=== PATIENT | female | born 1955 | race Caucasian/White ===

== ENCOUNTER 2019-04-24 06:29 | Day surgery (SDC) | payer OTHER ==
[~2019-04-24 06:29] MED LIST: DORZOLAMIDE HCL 2%/TIMOLOL MALEAT 0.5% OPH SOLN 10 ML OD PRN; KETOROLAC TROMETHAMINE 0.45% 4 DROP/0.4 ML DROPERETTE OD PRN
[2019-04-24] MEDS: BESIFLOXACIN HCL 0.6% OPH SUSP 5 ML BOTTLE OD PRN ×3 (06:50→08:04)
[2019-04-24] MEDS: CYCLOPENTOLATE 0.2%/PHENYLEPHRINE 1% OPH SOLN 2 ML OD PRN ×3 (06:50→07:12)
[2019-04-24] MEDS: TETRACAINE HCL 0.5% OPH SOLN 4 ML OD PRN ×3 (06:50→07:37)
[2019-04-24] MEDS: TROPICAMIDE 1% OPH SOLN 15 ML OD PRN ×3 (06:50→07:12)
[2019-04-24] MEDS ORDERED: EPINEPHRINE INJ/PF 1 MG/1 ML AMPULE ONE (07:12)
[2019-04-24] MEDS ORDERED: LIDOCAINE 1%/PHENYLEPHRINE 1.5% 1 ML VIAL ONE (07:12)
[2019-04-24] MEDS ORDERED: CHONDR SU A NA/HYALUR INTRAOC KIT (SURGICARE) ONE (07:12)
[2019-04-24] MEDS ORDERED: MIDAZOLAM 2 MG/2 ML INJ ONE (07:15)
[2019-04-24] MEDS ORDERED: FENTANYL CITRATE INJ/PF 100 MCG/2 ML AMPUL ONE (07:15)
--- NOTE | 2019-04-24 12:30 | Operative Report ---
Operative Report-[facility] Operative Report: DATE OF SURGERY: 04/24/2019 PREOPERATIVE DIAGNOSIS: Cataract, right eye POSTOPERATIVE DIAGNOSIS: Cataract, right eye OPERATION: Cataract extraction with insertion of an toric IOL of the right eye. Intraocular Lens Model: [11.5 [id number] at 72 degrees] reason for surgery was difficulty seeing road signs and television SURGEON: Adan Albrecht MD ANESTHESIA: Topical PROCEDURE: After obtaining appropriate consent, the patient's right eye was prepped and draped in a sterile fashion as well as the surgeon in the sterile manner and cataract surgery was started. First a paracentesis blade was used to make a side-port incision. Viscoelastic was used to inflate the anterior chamber. Next a 2.4 mm incision was made with a 2.4 mm blade, clear corneal temporarily. A continuous capsulorrhexis was made using a cystotome and Utrata forceps. Following this hydrodissection was carried out to make the fidel fully loose and mobile and it was rotated. Following this, a divide and conquer technique was used to phacoemulsify the fidel. The remaining cortex was removed with an irrigation/aspiration. Provisc was instilled into the capsular bag to inflate the bag. The intraocular lens was placed. The remaining viscoelastic material was removed with irrigation/aspiration. Following this, the incision was found to be watertight. Besivance and Cosopt was instilled into the eye and a protective shield was placed over the eye. The patient was reurned to the postoperative recovery in a stable condition.
== END 2019-04-24 08:58 | disposition home or self-care (01) ==
LOC: SC 06:29
PROVIDERS: ATTEND Internal Medicine
DX: H25.13 Age-related nuclear cataract, bilateral (principal); H43.813 Vitreous degeneration, bilateral; H52.4 Presbyopia; E66.9 Obesity, unspecified; J45.909 Unspecified asthma, uncomplicated; Z79.51 Long term (current) use of inhaled steroids
CPT/HCPCS: 66984; V2787; J2250; J3490 ×2; J0171; J3010; J2370

== ENCOUNTER 2019-05-22 09:02 | Day surgery (SDC) | payer OTHER ==
[~2019-05-22 09:02] MED LIST changes: +CHONDR SU A NA/HYALUR INTRAOC KIT (SURGICARE) ONE; -DORZOLAMIDE HCL 2%/TIMOLOL MALEAT 0.5% OPH SOLN 10 ML OD PRN; +DORZOLAMIDE HCL 2%/TIMOLOL MALEAT 0.5% OPH SOLN 10 ML OS PRN; +EPINEPHRINE INJ/PF 1 MG/1 ML AMPULE ONE; +FENTANYL CITRATE INJ/PF 100 MCG/2 ML AMPUL ONE; -KETOROLAC TROMETHAMINE 0.45% 4 DROP/0.4 ML DROPERETTE OD PRN; +KETOROLAC TROMETHAMINE 0.45% 4 DROP/0.4 ML DROPERETTE OS PRN; +LIDOCAINE 1%/PHENYLEPHRINE 1.5% 1 ML VIAL ONE; +MIDAZOLAM 2 MG/2 ML INJ ONE; +ONDANSETRON HCL INJ/PF 4 MG/2 ML SDV ONE
[2019-05-22] MEDS: BESIFLOXACIN HCL 0.6% OPH SUSP 5 ML BOTTLE OS PRN ×3 (10:17→11:19)
[2019-05-22] MEDS: TROPICAMIDE 1% OPH SOLN 15 ML OS PRN ×3 (10:17→10:32)
[2019-05-22] MEDS: TETRACAINE HCL 0.5% OPH SOLN 4 ML OS PRN ×3 (10:17→10:48)
[2019-05-22] MEDS: CYCLOPENTOLATE 0.2%/PHENYLEPHRINE 1% OPH SOLN 2 ML OS PRN ×3 (10:17→10:32)
[2019-05-22] MEDS ORDERED: TETRACAINE HCL 0.5% OPH SOLN 4 ML ONE (10:51)
[2019-05-22] MEDS ORDERED: ONDANSETRON HCL INJ/PF 4 MG/2 ML SDV ONE (11:24)
--- NOTE | 2019-05-22 16:03 | Operative Report ---
Operative Report-[facility] Operative Report: DATE OF SURGERY: 05/22/2019 PREOPERATIVE DIAGNOSIS: Cataracts, left eye POSTOPERATIVE DIAGNOSIS: Cataract, left eye OPERATION: Cataract extraction with insertion of an toric IOL of the left eye. Intraocular Lens Model: [12.5PX72T729 rotated to 110 degrees] Reason for surgery was difficulty with imbalance between both eyes since having the right eye done SURGEON: Adan Albrecht MD ANESTHESIA: Topical PROCEDURE: After obtaining appropriate consent, the patient's left eye was prepped and draped in a sterile fashion as well as the surgeon in the sterile manner and cataract surgery was started. First a paracentesis blade was used to make a side-port incision. Viscoelastic was used to inflate the anterior chamber. Next a 2.4 mm incision was made with a 2.4 mm blade, clear corneal temporarily. A continuous capsulorrhexis was made using a cystotome and Utrata forceps. Following this hydrodissection was carried out to make commands fully loose and mobile and it was rotated 90 degrees. Following this, a divide and conquer technique was used to phacoemulsify the lens. The remaining cortex was removed with an irrigation/aspiration. Provisc was instilled into the capsular bag to inflate the bag.The intracular lens was placed. The remaining viscoelastic material was removed with irrigation/aspiration. Following this, the incision was found to be watertight. Besivance and Cosopt was instilled into the eye and a protective shield was placed over the eye. The patient was turned to the postoperative recovery in a stable condition.
--- NOTE | 2019-05-22 16:05 | Operative Report ---
Operative Report-[facility] Operative Report: DATE OF SURGERY: 05/22/2019 PREOPERATIVE DIAGNOSIS: Cataracts, left eye POSTOPERATIVE DIAGNOSIS: Cataract, left eye OPERATION: Cataract extraction with insertion of an IOL of the left eye. Intraocular Lens Model: [21.3mz64oz] Reason for surgery was difficulty with blurred vision in the left eye having trouble with glare SURGEON: Adan Albrecht MD ANESTHESIA: Topical PROCEDURE: After obtaining appropriate consent, the patient's left eye was prepped and draped in a sterile fashion as well as the surgeon in the sterile manner and cataract surgery was started. First a paracentesis blade was used to make a side-port incision. Viscoelastic was used to inflate the anterior chamber. Next a 2.4 mm incision was made with a 2.4 mm blade, clear corneal temporarily. A continuous capsulorrhexis was made using a cystotome and Utrata forceps. Following this hydrodissection was carried out to make commands fully loose and mobile and it was rotated 90 degrees. Following this, a divide and conquer technique was used to phacoemulsify the lens. The remaining cortex was removed with an irrigation/aspiration. Provisc was instilled into the capsular bag to inflate the bag.The intracular lens was placed. The remaining viscoelastic material was removed with irrigation/aspiration. Following this, the incision was found to be watertight. Besivance and Cosopt was instilled into the eye and a protective shield was placed over the eye. The patient was turned to the postoperative recovery in a stable condition.
== END 2019-05-22 12:06 | disposition home or self-care (01) ==
LOC: SC 09:02
PROVIDERS: ATTEND Internal Medicine
DX: H25.12 Age-related nuclear cataract, left eye (principal); Z96.1 Presence of intraocular lens; J45.909 Unspecified asthma, uncomplicated; Z79.51 Long term (current) use of inhaled steroids; E66.9 Obesity, unspecified
CPT/HCPCS: 66984; 00142; V2787; J2250; J3490 ×2; J0171; J3010; J2405; J2370; 142

== ENCOUNTER 2019-06-23 14:09 | Emergency (ER) | payer OTHER ==
--- NOTE | 2019-06-23 15:03 | ER Document Report ---
HPI - HPI Time Seen by Provider: 06/23/19 14:54 Pain Level: 3 Context: Patient is a 63-year-old female who presents the emergency department with a chief complaint of right knee pain. Patient reports about 3 weeks ago she was sitting at her desk at work when she turned around in her chair and smacked the right side of her knee on a metal filing cabinet. Patient reports she is attempted to take [id number] lidocaine cream, BenGay and Aleve with minimal relief. Patient reports she is having pain to the right side of the knee as well as the posterior aspect of the knee. Patient reports movement and long periods of rest seem to make the pain worse. Patient reports she has been able to ambulate and and has not been able to rest the knee since the injury due to work. Past Medical History - General Information source: Patient - Social History Smoking Status: Never Smoker Chew tobacco use (# tins/day): No Frequency of alcohol use: None Drug Abuse: None Lives with: Family Family History: None Patient has suicidal ideation: No Patient has homicidal ideation: No - Past Medical History Cardiac Medical History: Reports: None Denies: Hx Heart Attack, Hx Hypertension Pulmonary Medical History: Reports: Hx Asthma - CHRONIC BRONCHITIS EENT Medical History: Reports: None Neurological Medical History: Reports: None. Denies: Hx Cerebrovascular Accident, Hx Seizures Endocrine Medical History: Reports: None Renal/ Medical History: Reports: None Malignancy Medical History: Reports: None GI Medical History: Reports: None. Denies: Hx Hepatitis, Hx Hiatal Hernia, Hx Ulcer Musculoskeletal Medical History: Reports None Skin Medical History: Reports None Psychiatric Medical History: Reports: None Traumatic Medical History: Reports: None Infectious Medical History: Reports: None. Denies: Hx Hepatitis Surgical Hx: Negative Past Surgical History: Denies: Hx Mastectomy, Hx Open Heart Surgery, Hx Pacemaker Vertical Provider Document - CONSTITUTIONAL Agree With Documented VS: Yes Exam Limitations: No Limitations General Appearance: No Apparent Distress - INFECTION CONTROL TRAVEL OUTSIDE OF THE [place] IN LAST 30 DAYS: No - HEENT HEENT: Atraumatic, Normal ENT Exam, Normocephalic, PERRLA - NECK Neck: Normal Inspection - RESPIRATORY Respiratory: Breath Sounds Normal, No Respiratory Distress - CARDIOVASCULAR Cardiovascular: Regular Rate, Regular Rhythm - GI/ABDOMEN Gastrointestinal: Abdomen Soft, Abdomen Non-Tender, Normal Bowel Sounds - MUSCULOSKELETAL/EXTREMETIES Musculoskeletal/Extremeties: FROM Notes: Patient has tenderness to the right side of the patella on the right leg, mild amount of swelling without ecchymosis or erythema. Patient has a palpable +2 popliteal pulse. Patient is able to flex and extend the right knee. Course - Re-evaluation Re-evalutation: 06/23/19 16:34 I did offer the patient crutches so she can stay off of the right knee. 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 I did inform the patient she does need to rest, ice and elevate. I did offer an shemar bandage but the patient reports she does have her 's knee brace. I did inform the patient if she does not start to feel better despite rest she does need to follow-up with orthopedics. - Vital Signs Vital signs: Temp Pulse Resp BP Pulse Ox 77 18 157/73 H 98 06/23/19 14:19 06/23/19 14:40 06/23/19 14:19 06/23/19 14:40 - Diagnostic Test Radiology reviewed: Reports reviewed Radiology results interpreted by me: 06/23/19 16:34 Knee X-Ray 06/23/19 15:00 IMPRESSION: Mild prepatellar soft tissue swelling. No evidence of acute bony abnormality. Discharge - Discharge Clinical Impression: Right knee injury Qualifiers: Encounter type: initial encounter Qualified Code(s): S89.91XA - Unspecified injury of right lower leg, initial encounter Condition: Stable Disposition: HOME, SELF-CARE Additional Instructions: *Today you are seen in the emergency department after hitting your knee against a filing cabinet at work. We did obtain an x-ray which did not show any acute bony abnormality such as a fracture dislocation. You do have soft tissue swelling which normally occurs after an injury such as the one you have described. I would recommend staying off of your leg over the weekend so you can rest. Use ice, a knee brace. If you continue to have pain I would follow- up with the orthopedist as you may require additional imaging. Referrals: DARRYL WILEY JR, DO [ACTIVE PROVISIONAL STAFF] - Follow up as needed CHRISTIAN DRAKE MD [ACTIVE STAFF] - Follow up as needed YUKI MUIR DO [ACTIVE STAFF] - Follow up as needed INDIA SOMMER MD [ACTIVE PROVISIONAL STAFF] - Follow up as needed
--- NOTE | 2019-06-23 16:20 | RADIOLOGY REPORT (SQ) ---
EXAM DESCRIPTION: KNEE RIGHT 4 VIEWS COMPLETED DATE/TIME: 06/23/2019 3:51 pm REASON FOR STUDY: hit right knee x 3 weeks, continued pain COMPARISON: None. NUMBER OF VIEWS: Four views. TECHNIQUE: AP, lateral, and both oblique radiographic images acquired of the right knee. LIMITATIONS: None. FINDINGS: MINERALIZATION: Normal. BONES: No acute fracture or dislocation. No worrisome bone lesions. Superior patellar enthesophyte. JOINT: No effusion. SOFT TISSUES: Mild prepatellar soft tissue swelling. No radiopaque foreign body. OTHER: No other significant finding. IMPRESSION: Mild prepatellar soft tissue swelling. No evidence of acute bony abnormality. TECHNICAL DOCUMENTATION: JOB ID: [id number]- All Rights Reserved Reading location - IP/workstation name: [email or web address]
[2019-06-23 16:44] VITALS: BP 148/70
== END 2019-06-23 16:43 | disposition home or self-care (01) ==
LOC: ER 14:09
DX: S89.91XA Unspecified injury of right lower leg, initial encounter (principal); M25.561 Pain in right knee; W22.09XA Striking against other stationary object, initial encounter; Y99.0 Civilian activity done for income or pay
CPT/HCPCS: 99283